=== PATIENT | male | born 2000 | race Two or more races ===

== ENCOUNTER 2019-04-12 22:20 | Emergency (ER) | payer SELFPAY ==
[2019-04-12 23:03] LABS: HEMATOCRIT 45.8 % (42.0-52.0); HEMOGLOBIN 15.5 g/dl (13.5-17.5); MEAN CORPUSCULAR HEMOGLOBIN 30.3 pg (27.0-33.0); MEAN CORPUSCULAR HGB CONC 33.8 g/dl (32.0-36.5); MEAN CORPUSCULAR VOLUME 89.5 fl (80.0-96.0); PLATELET COUNT, AUTOMATED 211 10^3/uL (150-450); RED BLOOD COUNT 5.12 10^6/uL (4.30-6.10)
[2019-04-12 23:34] LABS: AMPHETAMINES LEVEL URINE NEGATIVE (NEGATIVE); BARBITURATES URINE NEGATIVE (NEGATIVE); BENZODIAZEPINES URINE NEGATIVE (NEGATIVE); CANNABINOIDS URINE NEGATIVE (NEGATIVE); COCAINE METABOLITE URINE NEGATIVE (NEGATIVE); METHADONE URINE NEGATIVE (NEGATIVE); OPIATES URINE NEGATIVE (NEGATIVE); PHENCYCLIDINE URINE NEGATIVE (NEGATIVE)
[2019-04-12 23:44] LABS: ACETAMINOPHEN LEVEL < 2.0 UG/ML (10.0-30.0); ALBUMIN 4.3 GM/DL (3.2-5.2); ALT/SGPT 23 U/L (12-78); BILIRUBIN,DIRECT 0.3 MG/DL (0.0-0.2); BLOOD UREA NITROGEN 10 MG/DL (7-18); CARBON DIOXIDE LEVEL 30 MEQ/L (21-32); CHLORIDE LEVEL 105 MEQ/L (98-107); ETHYL ALCOHOL (ETHANOL) < 0.003 % (0.000-0.010); GLUCOSE, FASTING 111 MG/DL (70-100); POTASSIUM SERUM 4.1 MEQ/L (3.5-5.1); SALICYLATE LEVEL < 1.7 MG/DL (5.0-30.0); SODIUM LEVEL 140 MEQ/L (136-145)
[2019-04-12] MEDS ORDERED: ADACEL/BOOSTRIX VACCINE (DIPHTH/PERTUSS/ACELL/TETANUS)0.5ML SYR (90715) IM ONE (23:45)
[2019-04-13 15:43] VITALS: BP 105/64
--- NOTE | 2019-04-13 21:21 | ECGEPIP ---
[facility] - ED Test Date: 2019-04-13 Pat Name: JP TIPTON Department: Room: - Gender: Male [place]: CARLITO : 2000 Requested By: DAVIAN Ramon Order Number: [id number] Reading MD: Cherelle El Measurements Intervals [place] Rate: 64 P: 64 AR: 128 QRS: 91 QRSD: 100 T: 67 QT: 379 QTc: 394 Interpretive Statements SINUS RHYTHM WITH SINUS ARRHYTHMIA BORDERLINE RIGHT AXIS DEVIATION EARLY REPOLARIZATION, CLINICAL CORRELATION TO EXCLUDE ISCHMIA Electronically Signed on 04-13-2019 21:21:22 EDT by Cherelle El
== END 2019-04-13 15:50 ==
LOC: M ED 22:20
DX: F33.9 Major depressive disorder, recurrent, unspecified (principal); R45.851 Suicidal ideations; S70.311A Abrasion, right thigh, initial encounter; X78.8XXA Intentional self-harm by other sharp object, initial encounter; Y92.89 Other specified places as the place of occurrence of the external cause
CPT/HCPCS: 36415; 80048; 80076; 80307; 84443; 85027; 90471; 90715; 93005; 99284; G0480

== ENCOUNTER → 2019-08-26 | Outpatient (CLI) | payer OTHER, SELFPAY ==
--- NOTE | 2019-08-26 14:15 | REP ---
Chest x-ray: Two views. History: Fever. . Comparison study: No comparison study . Findings: The lungs are well inflated. There is a subtle infiltrate in the right lower lobe consistent with pneumonia. Remaining lung martinez are clear. Heart is not enlarged. No bony abnormality is seen. Impression: Right lower lobe pneumonia. Electronically Signed by Augie Hardy MD 08/26/2019 02:07 P
== END ==
LOC: M LRY 13:35
PROVIDERS: ATTEND Physician Assistant Medical
DX: R50.9 Fever, unspecified (principal)